=== PATIENT | male | born 1965 | race African-American/Black ===

== ENCOUNTER 2018-11-05 22:24 | Inpatient (IN) | payer OTHER, SELFPAY ==
[2018-11-05 23:31] LABS: #Basophils 0.1 thou/uL (0.0-0.2); #Eosinphils 0.2 thou/uL (0.0-0.7); #Monocytes 0.4 thou/uL (0.11-0.59); #Neutrophils 5.3 thou/uL (1.40-6.50); %Basophils 1.2 % (0.0-1.0); %Eosinophils 2.5 % (0.0-10.0); %Lymphocytes 24.8 % (21.0-51.0); %Monocytes 5.2 % (0.0-10.0); %Neutrophils 66.5 % (42.0-75.0); Mean Corpuscular HGB CONC 32.8 g/dL (32.0-36.0); Mean Corpuscular Volume 85.3 fL (78.0-98.0); Platelet Count 253 thou/uL (130-400); RBC Distribution Width 12.4 % (11.5-14.5); Red Blood Cell (RBC) Count 4.28 mill/uL (4.70-6.10); White Blood Cell (WBC) Count 7.9 thou/uL (4.8-10.8)
--- NOTE | 2018-11-05 23:39 | RAD ---
ONE VIEW CHEST: History: Altered mental status. Confusion. Comparison: 12-09-15 FINDINGS: Slight elongation of the aorta. Normal cardiac silhouette. Pulmonary vessels and hilum are normal. Co stophrenic angles are clear. No mass. No consolidation. No pneumothorax or osseous abnormalities. IMPRESSION: No acute cardiopulmonary process. POS: [facility]
--- NOTE | 2018-11-05 23:45 | CT ---
NONCONTRAST HEAD CT: Comparison: 03-08-09 History: Altered mental status. Confusion. Patient is not acting right. FINDINGS: NO parenchymal hemorrhage. No extraaxial hematoma. No midline shift. Basilar cisterns are patent. Age appropriate brain volume. There are white matter hypodensities due to chronic small vessel ischemic change. Remote lacunar infarcts involving the anterior aspect of the right lentiform nucleus and late ral aspect of the right caudate nucleus are noted. There is loss of cortical hurd white matter differentiation in the medial aspect of the left occipita l and parietal lobe. Remaining of the cerebrum does demonstrate preservation of cortical hurd white m atter differentiation. No evidence of hydrocephalus. Calvarium is intact. Adequate aeration of the si nuses and mastoid air cells. IMPRESSION: Acute infarct involving the left FLOWERS SALESPERSON distribution is suspected. Results of study discussed with Dr. Betina seo 11-05-18 at 11:33 p.m. POS: [facility]
[2018-11-05 23:46] LABS: Acetaminophen Less than 6.0 mcg/mL (10.0-30.0); Alcohol Less than 10 mg/dL (Less than 10); Salicylate Less than 8.0 mg/dL (15.0-30.0)
[2018-11-05 23:47] LABS: ALT (SGPT) 16 U/L (8-55); AST (SGOT) 15 U/L (5-34); Albumin 3.9 g/dL (3.5-5.0); Alkaline Phosphatase 108 U/L (40-150); Anion Gap 16 mmol/L (10-20); BUN (Urea Nitrogen) 22 mg/dL (8.4-25.7); Bilirubin, Total 0.4 mg/dL (0.2-1.2); CK (CPK) 251 U/L (30-200); Calc. Creatinine Clearance 0 mL/min (70-130); Calcium 9.4 mg/dL (7.8-10.44); Carbon Dioxide 26 mmol/L (22-29); Chloride 104 mmol/L (98-107); Estimated GFR-MDRD 66; Globulin 3.7 g/dL (2.4-3.5); Glucose 90 mg/dL (70-105); Potassium 3.5 mmol/L (3.5-5.1); Protein, Total 7.6 g/dL (6.0-8.3); Sodium 142 mmol/L (136-145)
[2018-11-06] MEDS ORDERED: cloNIDine 0.1 MG TAB ONE (01:03)
[2018-11-06] MEDS ORDERED: Senokot S 8.6-50 MG TAB PO PRN (02:08)
[2018-11-06] MEDS ORDERED: Acetaminophen 325 MG TAB PO PRN (02:08)
[2018-11-06] MEDS ORDERED: Labetalol HCl 100 MG/20 ML VIAL SLOW IVP PRN (02:08)
[2018-11-06] MEDS ORDERED: Bisacodyl 5 MG TAB PO PRN (02:08)
[2018-11-06] MEDS ORDERED: Ondansetron ODT 4 MG TAB PO PRN (02:08)
[2018-11-06] MEDS ORDERED: Calcium Carbonate 500 MG ChewTAB PO PRN (02:08)
[2018-11-06] MEDS ORDERED: Ondansetron PF 4 MG/2 ML Vial IVP PRN (02:08)
[2018-11-06 02:31] VITALS: BMI 39.8
[2018-11-06] MEDS: Sodium Chloride 0.9% 1,000 ML IV SCH ×2 (03:06→13:29)
[2018-11-06 05:25] LABS: #Eosinphils 0.4 thou/uL (0.0-0.7); #Lymphocytes 2.3 thou/uL (1.20-3.40); #Monocytes 0.5 thou/uL (0.11-0.59); #Neutrophils 3.8 thou/uL (1.40-6.50); %Basophils 0.6 % (0.0-1.0); %Eosinophils 5.7 % (0.0-10.0); %Lymphocytes 32.3 % (21.0-51.0); %Monocytes 6.9 % (0.0-10.0); %Neutrophils 54.5 % (42.0-75.0); Hemoglobin 10.7 g/dL (14.0-18.0); Mean Corpuscular HGB CONC 32.4 g/dL (32.0-36.0); Mean Corpuscular Hemoglobin 27.5 pg (27.0-31.0); Mean Corpuscular Volume 84.9 fL (78.0-98.0); Platelet Count 224 thou/uL (130-400); RBC Distribution Width 12.3 % (11.5-14.5); Red Blood Cell (RBC) Count 3.88 mill/uL (4.70-6.10)
[2018-11-06 05:56] LABS: Troponin I 0.043 ng/mL (< 0.028)
[2018-11-06 07:52] LABS: Anion Gap 14 mmol/L (10-20); BUN (Urea Nitrogen) 20 mg/dL (8.4-25.7); Calc. Creatinine Clearance 145 mL/min (70-130); Calcium 8.9 mg/dL (7.8-10.44); Carbon Dioxide 23 mmol/L (22-29); Chloride 107 mmol/L (98-107); Cholesterol 184 mg/dl (< 200 Desired); Estimated GFR-MDRD 87; Glucose 93 mg/dL (70-105); Sodium 141 mmol/L (136-145); Triglycerides 135 mg/dL (Less than 150)
[2018-11-06 07:53] LABS: Cardiac Risk 5.4 (Less than 4.5); HDL Cholesterol 34 mg/dL (>60 Neg Risk); LDL Cholesterol, Calculated 123 mg/dL
[2018-11-06] MEDS: Enoxaparin Sodium 30 MG/0.3 ML SYRINGE SC SCH (09:20)
[2018-11-06] MEDS: Famotidine/PF 20 mg/2ml Vial SLOW IVP SCH ×2 (09:21→20:57)
[2018-11-06] MEDS: Famotidine 20 MG TAB PO SCH ×2 (09:21→20:57)
[2018-11-06] MEDS: Aspirin 81 mg Enteric Coated Tablet PO SCH (09:21)
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
[2018-11-06] MEDS ORDERED: Potassium Chloride 20 MEQ TAB PO SCH (11:45)
[2018-11-06 12:34] LABS: Hemoglobin A1c 4.4 % (4.0-6.0)
--- NOTE | 2018-11-06 16:35 | ULT ---
CAROTID DUPLEX SONOGRAM: HISTORY: CVA. Vascular disease. FINDINGS: RIGHT: Minimal plaque. COLOR AND SPECTRAL DOPPLER EVALUATION: A peak systolic velocity of 38 cm per second and an ICA to CC A ratio of 0.3 suggests no hemodynamically significant stenosis within the extracranial right ICA. A ntegrade flow within the vertebral artery. LEFT: Mild plaque. COLOR AND SPECTRAL DOPPLER EVALUATION: A peak systolic velocity of 93 cm per second and an ICA to CC A ratio of 1.0 suggests no hemodynamically significant stenosis within the extracranial left ICA. El evated velocity in the external carotid artery of 210 cm per second suggests possible stenosis. Ante grade flow within the vertebral artery. IMPRESSION: Atherosclerosis. NO sonographic evidence of significant extracranial internal carotid artery stenosi s. POS: [facility]
--- NOTE | 2018-11-06 17:07 | MRI ---
MRI BRAIN NONCONTRAST: HISTORY: Altered mental status. CVA. COMPARISON: CT from 11/05/2018. FINDINGS: A large area of restricted diffusion involves the medial aspect of the left occipital lobe and region of abnormality on recent CT. There is a corresponding defect on the ADC mapping images. Multiple a dditional smaller foci of restricted diffusion are present throughout each cerebellar hemisphere, the medial aspect of the right occipital lobe, and the left basal ganglia. The areas of abnormality kelin w a mild increase in FLAIR and T2 signal. No significant mass effect. Scattered chronic small vesse l disease. The ventricles are within normal limits. IMPRESSION: As part of a recent showering embolic phenomenon appearance of the entirety of the posterior circulat ion, a large acute infarct involves the distribution of the left posterior cerebra artery. POS: [facility]
[2018-11-06] MEDS: Atorvastatin Calcium 40 MG TAB PO SCH (20:57)
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
[2018-11-07] MEDS: Sodium Chloride 0.9% 1,000 ML IV SCH ×3 (01:47→19:25)
[2018-11-07] MEDS: Aspirin 81 mg Enteric Coated Tablet PO SCH (09:05)
[2018-11-07] MEDS: Enoxaparin Sodium 30 MG/0.3 ML SYRINGE SC SCH (09:05)
[2018-11-07] MEDS: Famotidine 20 MG TAB PO SCH ×2 (09:05→20:49)
[2018-11-07] MEDS: Famotidine/PF 20 mg/2ml Vial SLOW IVP SCH ×2 (09:06→20:53)
--- NOTE | 2018-11-07 13:44 | PDOC.PN ---
- Subjective Encounter Start Date: 11/07/18 Encounter Start Time: 13:43 Patient seen and examined, sister at bedside, patient is AAO x 2, no major events overnight, all questions answered. - Objective Vital Signs & Weight: Vital Signs (12 hours) Temp Pulse Resp BP Pulse Ox 11/07/18 11:13 97.7 F 54 L 20 201/97 H 94 L 11/07/18 07:30 99.1 F 53 L 20 177/84 H 96 11/07/18 03:49 98.4 F 58 L 16 185/86 H 96 Weight Weight 285 lb 11.2 oz I&O: 11/06/18 11/07/18 11/08/18 06:59 06:59 06:59 Intake Total 2840 720 Output Total 275 Balance 2565 720 Result Diagrams: 11/06/18 04:21 11/06/18 04:21 Additional Labs: Accuchecks 11/07/18 05:46 POC Glucose 83 Phys Exam - Physical Examination Constitutional: NAD obese HEENT: PERRLA, moist MMs, sclera anicteric, TM's clear Neck: no nodes, no JVD, supple Respiratory: no wheezing, no rales, no rhonchi Cardiovascular: RRR, no significant murmur, no rub Gastrointestinal: soft, non-tender, no distention Musculoskeletal: pulses present, edema present (trace) Neurological: non-focal, normal sensation AAO x person and place only not time Dx/Plan (1) Stroke Code(s): I63.9 - CEREBRAL INFARCTION, UNSPECIFIED Status: Acute (2) Hypertension Code(s): I10 - ESSENTIAL (PRIMARY) HYPERTENSION Status: Acute - Plan * patient's sister states he has insurance, will await for them to bring the card, if he does patient would benefit from SNF and then eventually need assisted living or a fdc * no other changes in plan of care * case and plan d/ wpatient's sister at length, prognosis very poor over all, high risk for stroke to recurr, she understood and agreed with this plan.
[2018-11-07 15:08] LABS: Anion Gap 12 mmol/L (10-20); BUN (Urea Nitrogen) 14 mg/dL (8.4-25.7); Calc. Creatinine Clearance 158 mL/min (70-130); Calcium 9.1 mg/dL (7.8-10.44); Carbon Dioxide 26 mmol/L (22-29); Chloride 107 mmol/L (98-107); Estimated GFR-MDRD Greater than 90; Glucose 86 mg/dL (70-105); Potassium 3.6 mmol/L (3.5-5.1); Sodium 141 mmol/L (136-145)
[2018-11-07] MEDS: Atorvastatin Calcium 40 MG TAB PO SCH (20:49)
[2018-11-08] MEDS: Sodium Chloride 0.9% 1,000 ML IV SCH (02:16)
[2018-11-08] MEDS: Aspirin 81 mg Enteric Coated Tablet PO SCH (09:43)
[2018-11-08] MEDS: Famotidine 20 MG TAB PO SCH ×2 (09:43→21:38)
[2018-11-08] MEDS: Enoxaparin Sodium 30 MG/0.3 ML SYRINGE SC SCH (09:44)
[2018-11-08] MEDS: Famotidine/PF 20 mg/2ml Vial SLOW IVP SCH ×2 (10:46→21:38)
--- NOTE | 2018-11-08 10:48 | PDOC.PN ---
- Subjective Encounter Start Date: 11/08/18 Encounter Start Time: 10:44 Patient seen and examined, no new issues or complaints, sister at bedside, all questions answered. - Objective Vital Signs & Weight: Vital Signs (12 hours) Temp Pulse Resp BP Pulse Ox 11/08/18 07:51 99.1 F 57 L 20 175/98 H 98 11/08/18 04:00 98.8 F 56 L 16 183/89 H 92 L 11/08/18 00:25 98.2 F 61 16 185/86 H 92 L Weight Weight 285 lb 11.2 oz I&O: 11/07/18 11/08/18 11/09/18 06:59 06:59 06:59 Intake Total 2840 2160 Output Total 275 Balance 2565 2160 Result Diagrams: 11/06/18 04:21 11/07/18 14:43 Phys Exam - Physical Examination Constitutional: NAD HEENT: PERRLA, moist MMs, sclera anicteric, TM's clear Neck: no nodes, no JVD, supple Respiratory: no wheezing, no rales, no rhonchi Cardiovascular: RRR, no significant murmur, no rub Gastrointestinal: soft, non-tender, no distention Musculoskeletal: no edema, pulses present Neurological: non-focal, normal sensation Psychiatric: normal affect Deviation from normal: AAO to person and place only Dx/Plan (1) Stroke Code(s): I63.9 - CEREBRAL INFARCTION, UNSPECIFIED Status: Acute (2) Hypertension Code(s): I10 - ESSENTIAL (PRIMARY) HYPERTENSION Status: Acute - Plan * sister states she will be bringing paperwork to show that the patient has insurance * Patient remains confused and completely disoriented to time, the patient doesn 't have anyone at home who can take care of him, options will be discussed with family regarding assisted living or a SNF, CM/SW made aware and will be discussing with the patient's sister * for now will continue with aspirin + statin management, dietary changes advised * case and plan d/w patient's sister at length, she understands and agrees with this plan
[2018-11-08] MEDS ORDERED: Amlodipine 5 MG TAB PO SCH (14:15)
[2018-11-08] MEDS: hydrALAZINE 20 MG/ML VIAL SLOW IVP PRN (16:45)
[2018-11-08] MEDS: Atorvastatin Calcium 40 MG TAB PO SCH (21:38)
[2018-11-09] MEDS: hydrALAZINE 20 MG/ML VIAL SLOW IVP PRN ×3 (00:06→17:06)
[2018-11-09] MEDS: Famotidine 20 MG TAB PO SCH ×2 (09:09→21:03)
[2018-11-09] MEDS: Hydrochlorothiazide 25 MG TAB PO SCH (09:09)
[2018-11-09] MEDS: Amlodipine 10 MG TAB PO SCH (09:10)
[2018-11-09] MEDS: Aspirin 81 mg Enteric Coated Tablet PO SCH (09:10)
[2018-11-09] MEDS: Enoxaparin Sodium 30 MG/0.3 ML SYRINGE SC SCH (09:11)
[2018-11-09] MEDS: Famotidine/PF 20 mg/2ml Vial SLOW IVP SCH ×2 (09:12→21:04)
--- NOTE | 2018-11-09 14:45 | PDOC.PN ---
- Subjective Encounter Start Date: 11/09/18 Encounter Start Time: 14:48 Patient seen and examined, no new issues or complaints. - Objective Vital Signs & Weight: Vital Signs (12 hours) Temp Pulse Resp BP Pulse Ox 11/09/18 12:47 65 11/09/18 11:48 98.7 F 65 20 230/108 H 97 11/09/18 10:20 204/91 H 11/09/18 09:10 66 11/09/18 08:00 97 11/09/18 07:30 98.3 F 56 L 20 238/109 H 97 11/09/18 04:28 97.9 F 60 19 176/83 H 98 Weight Weight 285 lb 11.2 oz I&O: 11/08/18 11/09/18 11/10/18 06:59 06:59 06:59 Intake Total 2160 480 Balance 2160 480 Result Diagrams: 11/06/18 04:21 11/07/18 14:43 Phys Exam - Physical Examination Constitutional: NAD HEENT: PERRLA, moist MMs, sclera anicteric Neck: no nodes, no JVD, supple Respiratory: no wheezing, no rales, no rhonchi Cardiovascular: RRR, no significant murmur, no rub Gastrointestinal: soft, non-tender, no distention Musculoskeletal: pulses present Neurological: non-focal, normal sensation Psychiatric: normal affect Deviation from normal: AAO to person and place only Skin: no rash, normal turgor Dx/Plan (1) Stroke Code(s): I63.9 - CEREBRAL INFARCTION, UNSPECIFIED Status: Acute (2) Hypertension Code(s): I10 - ESSENTIAL (PRIMARY) HYPERTENSION Status: Acute - Plan * start HCTZ 25mg + norvasc 10mg + lisinopril 20mg for BP control * hydralazing PRN * cont current medications otherwise * if SBP predominently < 160mmHg in AM will DC patient AM * patient has no funding thus unable to do SNF or NH, CM d/w patient's sister already
[2018-11-09] MEDS: Atorvastatin Calcium 40 MG TAB PO SCH (21:03)
[2018-11-10] MEDS: hydrALAZINE 20 MG/ML VIAL SLOW IVP PRN ×2 (01:05→11:36)
[2018-11-10] MEDS ORDERED: cloNIDine 0.1 MG TAB PO PRN (04:43)
[2018-11-10] MEDS: Famotidine/PF 20 mg/2ml Vial SLOW IVP SCH (08:39)
[2018-11-10] MEDS: Amlodipine 10 MG TAB PO SCH (08:42)
[2018-11-10] MEDS: Hydrochlorothiazide 25 MG TAB PO SCH (08:43)
[2018-11-10] MEDS: Aspirin 81 mg Enteric Coated Tablet PO SCH (08:43)
[2018-11-10] MEDS: Lisinopril 20 MG TAB PO SCH (08:43)
[2018-11-10] MEDS: Famotidine 20 MG TAB PO SCH ×2 (08:43→20:37)
[2018-11-10] MEDS: Enoxaparin Sodium 30 MG/0.3 ML SYRINGE SC SCH (08:44)
--- NOTE | 2018-11-10 13:09 | PDOC.PN ---
- Subjective Encounter Start Date: 11/10/18 Encounter Start Time: 13:07 Patient seen and examined, remains confused, no family at bedside, all questions answered. - Objective Vital Signs & Weight: Vital Signs (12 hours) Temp Pulse Resp BP BP Pulse Ox 11/10/18 11:47 98.1 F 75 20 175/95 H 96 11/10/18 11:36 75 175/95 H 11/10/18 08:43 182/94 H 11/10/18 08:42 80 182/94 H 11/10/18 07:49 98.9 F 80 18 182/94 H 97 11/10/18 05:02 151/77 H 11/10/18 04:00 98.0 F 69 18 193/91 H 97 11/10/18 02:12 183/85 H Weight Weight 285 lb 11.2 oz I&O: 11/09/18 11/10/18 11/11/18 06:59 06:59 06:59 Intake Total 720 300 Balance 720 300 Result Diagrams: 11/06/18 04:21 11/07/18 14:43 Phys Exam - Physical Examination Constitutional: NAD HEENT: PERRLA, moist MMs, sclera anicteric Neck: no nodes, no JVD, supple Respiratory: no wheezing, no rales, no rhonchi Cardiovascular: RRR, no significant murmur, no rub Gastrointestinal: soft, non-tender, no distention Musculoskeletal: pulses present, edema present (trace) Neurological: non-focal, normal sensation AAO to person and place only not time Dx/Plan (1) Stroke Code(s): I63.9 - CEREBRAL INFARCTION, UNSPECIFIED Status: Acute (2) Hypertension Code(s): I10 - ESSENTIAL (PRIMARY) HYPERTENSION Status: Acute - Plan * pending insurance confirmation * DC to NH or SNF once insurance confirmed * start on HCTZ, noravasc and lisinopril yesterday, will monitor for now, SBP in the 160-170s, will increase lisinopril of SBP remains elevated, target SBP 120-140mmHh, will slowly drop BP * no other changes in plan of care * no family at bedside.
[2018-11-10] MEDS: Atorvastatin Calcium 40 MG TAB PO SCH (20:37)
[2018-11-11] MEDS: Hydrochlorothiazide 25 MG TAB PO SCH (09:14)
[2018-11-11] MEDS: Amlodipine 10 MG TAB PO SCH (09:14)
[2018-11-11] MEDS: Lisinopril 20 MG TAB PO SCH (09:15)
[2018-11-11] MEDS: Aspirin 81 mg Enteric Coated Tablet PO SCH (09:15)
[2018-11-11] MEDS: Famotidine 20 MG TAB PO SCH ×2 (09:15→20:40)
[2018-11-11] MEDS: Enoxaparin Sodium 30 MG/0.3 ML SYRINGE SC SCH (09:15)
--- NOTE | 2018-11-11 13:25 | PDOC.PN ---
- Subjective Encounter Start Date: 11/11/18 Encounter Start Time: 13:23 patient seen and examined, no new issues or complaints, all questions answered. No family at bedside. - Objective Vital Signs & Weight: Vital Signs (12 hours) Temp Pulse Resp BP Pulse Ox 11/11/18 11:44 98.8 F 72 18 156/83 H 96 11/11/18 07:53 99.0 F 97 18 160/96 H 97 11/11/18 04:00 99.1 F 86 18 140/84 96 Weight Weight 285 lb 11.2 oz I&O: 11/10/18 11/11/18 11/12/18 06:59 06:59 06:59 Intake Total 720 600 Balance 720 600 Result Diagrams: 11/06/18 04:21 11/07/18 14:43 Phys Exam - Physical Examination Constitutional: NAD HEENT: PERRLA, moist MMs, sclera anicteric Neck: no nodes, no JVD, supple Respiratory: no wheezing, no rales, no rhonchi Cardiovascular: RRR, no significant murmur, no rub Gastrointestinal: soft, non-tender, no distention Musculoskeletal: pulses present, edema present (trace) Dx/Plan (1) Stroke Code(s): I63.9 - CEREBRAL INFARCTION, UNSPECIFIED Status: Acute (2) Hypertension Code(s): I10 - ESSENTIAL (PRIMARY) HYPERTENSION Status: Acute - Plan * pending placement * case d/w patient's sister, states she's reached out to [facility] and is awaiting call back * DC plans once placement arranged * no changes in medical plan of care otherwise * case and plan d/w patient's sister, Samaria, via phone ([phone]), at length , she understood and agreed with this plan
[2018-11-11] MEDS: Atorvastatin Calcium 40 MG TAB PO SCH (20:40)
[2018-11-12] MEDS: Amlodipine 10 MG TAB PO SCH (09:02)
[2018-11-12] MEDS: Aspirin 81 mg Enteric Coated Tablet PO SCH (09:02)
[2018-11-12] MEDS: Lisinopril 20 MG TAB PO SCH (09:03)
[2018-11-12] MEDS: Enoxaparin Sodium 30 MG/0.3 ML SYRINGE SC SCH (09:03)
[2018-11-12] MEDS: Famotidine 20 MG TAB PO SCH ×2 (09:03→20:42)
[2018-11-12] MEDS: Hydrochlorothiazide 25 MG TAB PO SCH (09:03)
--- NOTE | 2018-11-12 10:52 | PDOC.PN ---
- Subjective Encounter Start Date: 11/12/18 Encounter Start Time: 10:50 Patient seen and examined - Objective Vital Signs & Weight: Vital Signs (12 hours) Temp Pulse Resp BP Pulse Ox 11/12/18 09:02 65 11/12/18 07:25 98.4 F 65 16 121/74 97 11/12/18 03:55 98.1 F 75 16 131/79 93 L 11/12/18 00:00 98.5 F 71 16 149/79 H 95 Weight Weight 285 lb 11.2 oz I&O: 11/11/18 11/12/18 11/13/18 06:59 06:59 06:59 Intake Total 600 1500 Balance 600 1500 Result Diagrams: 11/06/18 04:21 11/07/18 14:43 Phys Exam - Physical Examination Constitutional: NAD HEENT: PERRLA, moist MMs, sclera anicteric Neck: no nodes, no JVD, supple Respiratory: no wheezing, no rales, no rhonchi Cardiovascular: RRR, no significant murmur, no rub Gastrointestinal: soft, non-tender, no distention Musculoskeletal: pulses present, edema present (trace) Dx/Plan (1) Stroke Code(s): I63.9 - CEREBRAL INFARCTION, UNSPECIFIED Status: Acute (2) Hypertension Code(s): I10 - ESSENTIAL (PRIMARY) HYPERTENSION Status: Acute - Plan * cont asa + statin * cont BP management, much improved * pending discharge placement, sister is discussing with a NH to see if they will take him * DC plans once arrangements made, if none made then will DC home
[2018-11-12] MEDS: Atorvastatin Calcium 40 MG TAB PO SCH (20:42)
[2018-11-13] MEDS: Enoxaparin Sodium 30 MG/0.3 ML SYRINGE SC SCH (08:37)
[2018-11-13] MEDS: Amlodipine 10 MG TAB PO SCH (08:37)
[2018-11-13] MEDS: Aspirin 81 mg Enteric Coated Tablet PO SCH (08:37)
[2018-11-13] MEDS: Famotidine 20 MG TAB PO SCH ×2 (08:37→20:13)
[2018-11-13] MEDS: Hydrochlorothiazide 25 MG TAB PO SCH (08:37)
[2018-11-13] MEDS: Lisinopril 20 MG TAB PO SCH (08:37)
--- NOTE | 2018-11-13 12:06 | PDOC.PN ---
- Subjective Encounter Start Date: 11/13/18 Encounter Start Time: 07:00 Pt seen for followup re: ischemic CVA. Says he feels well. - Objective Vital Signs & Weight: Vital Signs (12 hours) Temp Pulse Resp BP Pulse Ox 11/13/18 11:43 97.8 F 64 18 145/98 H 96 11/13/18 08:37 62 11/13/18 07:34 97.9 F 62 18 144/66 H 97 11/13/18 03:43 98.5 F 67 16 123/64 93 L Weight Weight 266 lb 6.4 oz I&O: 11/12/18 11/13/18 11/14/18 06:59 06:59 06:59 Intake Total 1500 710 Balance 1500 710 Result Diagrams: 11/06/18 04:21 11/07/18 14:43 Phys Exam - Physical Examination Obese HEENT: moist MMs Neck: supple Respiratory: clear to auscultation bilateral Cardiovascular: RRR Gastrointestinal: soft Neurological: moves all 4 limbs Psychiatric: normal affect Deviation from normal: Oriented to person only Dx/Plan (1) Ischemic cerebrovascular accident (CVA) Code(s): I63.9 - CEREBRAL INFARCTION, UNSPECIFIED Status: Acute Comment: continue aspirin and statin (2) Hypertension Code(s): I10 - ESSENTIAL (PRIMARY) HYPERTENSION Status: Chronic Comment: continue amlodipine (3) Dyslipidemia Code(s): E78.5 - HYPERLIPIDEMIA, UNSPECIFIED Status: Chronic Comment: continue statin - Plan * . Review of Systems - Review of Systems Cardiovascular: negative: chest pain, palpitations, orthopnea, paroxysmal nocturnal dyspnea, edema, light headedness Gastrointestinal: negative: Nausea, Vomiting, Abdominal Pain, Diarrhea, Constipation, Melena, Hematochezia - Medications/Allergies Allergies/Adverse Reactions: Allergies Allergy/AdvReac Type Severity Reaction Status Date / Time No Known Allergies Allergy Verified 11/06/18 03:41 Medications: Current Medications Acetaminophen (Tylenol) 650 mg PO Q4H PRN PRN Reason: Headache/Fever/Mild Pain (1-3) Amlodipine Besylate (Norvasc) 10 mg PO DAILY [facility] Last Admin: 11/13/18 08:37 Dose: 10 mg Aspirin (Ecotrin) 81 mg PO DAILY [facility] Last Admin: 11/13/18 08:37 Dose: 81 mg Atorvastatin Calcium (Lipitor) 80 mg PO HS [facility] Last Admin: 11/12/18 20:42 Dose: 80 mg Bisacodyl (Dulcolax) 10 mg PO DAILYPRN PRN PRN Reason: Constipation Calcium Carbonate (Tums) 1,000 mg PO Q4H PRN PRN Reason: Heartburn or Indigestion Clonidine (Catapres) 0.1 mg PO Q4H PRN PRN Reason: SBP>170 Enoxaparin Sodium (Lovenox) 30 mg SC 0900 [facility] Last Admin: 11/13/18 08:37 Dose: 30 mg Famotidine (Pepcid) 20 mg PO BID [facility] Last Admin: 11/13/18 08:37 Dose: 20 mg Hydralazine HCl (Apresoline) 10 mg SLOW IVP Q4H PRN PRN Reason: FOR SBP > 170mmHg Last Admin: 11/10/18 11:36 Dose: 10 mg Hydrochlorothiazide (Hydrochlorothiazide) 25 mg PO DAILY [facility] Last Admin: 11/13/18 08:37 Dose: 25 mg Lisinopril (Zestril) 20 mg PO DAILY [facility] Last Admin: 11/13/18 08:37 Dose: 20 mg Ondansetron HCl (Zofran Odt) 4 mg PO Q6H PRN PRN Reason: Nausea/Vomiting Ondansetron HCl (Zofran) 4 mg IVP Q6H PRN PRN Reason: Nausea/Vomiting Senna/Docusate Sodium (Senokot S) 2 tab PO BIDPRN PRN PRN Reason: Constipation Sodium Chloride (Flush - Normal Saline) 10 ml IVF Q12HR [facility] Last Admin: 11/13/18 08:37 Dose: 10 ml Sodium Chloride (Flush - Normal Saline) 10 ml IVF PRN PRN PRN Reason: Saline Flush
[2018-11-13] MEDS: Atorvastatin Calcium 40 MG TAB PO SCH (20:13)
[2018-11-14] MEDS: Famotidine 20 MG TAB PO SCH ×2 (08:12→21:24)
[2018-11-14] MEDS: Enoxaparin Sodium 30 MG/0.3 ML SYRINGE SC SCH (08:12)
[2018-11-14] MEDS: Amlodipine 10 MG TAB PO SCH (08:12)
[2018-11-14] MEDS: Aspirin 81 mg Enteric Coated Tablet PO SCH (08:12)
[2018-11-14] MEDS: Lisinopril 20 MG TAB PO SCH (08:12)
[2018-11-14] MEDS: Hydrochlorothiazide 25 MG TAB PO SCH (08:13)
--- NOTE | 2018-11-14 11:36 | PDOC.PN ---
- Subjective Encounter Start Date: 11/14/18 Encounter Start Time: 07:00 Pt seen for followup re: ischemic CVA. Denies any complaints. - Objective MAR Reviewed: Yes Vital Signs & Weight: Vital Signs (12 hours) Temp Pulse Resp BP Pulse Ox 11/14/18 08:12 62 11/14/18 07:44 97.9 F 62 20 140/84 97 11/14/18 04:00 98.4 F 63 18 114/64 97 11/14/18 00:00 98.4 F 71 18 122/76 99 Weight Weight 266 lb 6.4 oz I&O: 11/13/18 11/14/18 11/15/18 06:59 06:59 06:59 Intake Total 710 1500 Balance 710 1500 Result Diagrams: 11/06/18 04:21 11/07/18 14:43 EKG Reviewed by me: Yes (Tele: NSR) Phys Exam - Physical Examination Constitutional: NAD HEENT: moist MMs Neck: supple Respiratory: clear to auscultation bilateral Cardiovascular: RRR Gastrointestinal: soft Neurological: moves all 4 limbs Psychiatric: normal affect Dx/Plan (1) Ischemic cerebrovascular accident (CVA) Code(s): I63.9 - CEREBRAL INFARCTION, UNSPECIFIED Status: Acute Comment: on aspirin and statin (2) Hypertension Code(s): I10 - ESSENTIAL (PRIMARY) HYPERTENSION Status: Chronic Comment: controlled (3) Dyslipidemia Code(s): E78.5 - HYPERLIPIDEMIA, UNSPECIFIED Status: Chronic Comment: on statin - Plan * . Review of Systems - Review of Systems Constitutional: negative: fever, chills, sweats, weakness, malaise Cardiovascular: negative: chest pain, palpitations, orthopnea, paroxysmal nocturnal dyspnea, edema, light headedness - Medications/Allergies Allergies/Adverse Reactions: Allergies Allergy/AdvReac Type Severity Reaction Status Date / Time No Known Allergies Allergy Verified 11/06/18 03:41 Medications: Current Medications Acetaminophen (Tylenol) 650 mg PO Q4H PRN PRN Reason: Headache/Fever/Mild Pain (1-3) Amlodipine Besylate (Norvasc) 10 mg PO DAILY [facility] Last Admin: 11/14/18 08:12 Dose: 10 mg Aspirin (Ecotrin) 81 mg PO DAILY [facility] Last Admin: 11/14/18 08:12 Dose: 81 mg Atorvastatin Calcium (Lipitor) 80 mg PO HS [facility] Last Admin: 11/13/18 20:13 Dose: 80 mg Bisacodyl (Dulcolax) 10 mg PO DAILYPRN PRN PRN Reason: Constipation Calcium Carbonate (Tums) 1,000 mg PO Q4H PRN PRN Reason: Heartburn or Indigestion Clonidine (Catapres) 0.1 mg PO Q4H PRN PRN Reason: SBP>170 Enoxaparin Sodium (Lovenox) 30 mg SC 0900 [facility] Last Admin: 11/14/18 08:12 Dose: 30 mg Famotidine (Pepcid) 20 mg PO BID [facility] Last Admin: 11/14/18 08:12 Dose: 20 mg Hydralazine HCl (Apresoline) 10 mg SLOW IVP Q4H PRN PRN Reason: FOR SBP > 170mmHg Last Admin: 11/10/18 11:36 Dose: 10 mg Hydrochlorothiazide (Hydrochlorothiazide) 25 mg PO DAILY [facility] Last Admin: 11/14/18 08:13 Dose: 25 mg Lisinopril (Zestril) 20 mg PO DAILY [facility] Last Admin: 11/14/18 08:12 Dose: 20 mg Ondansetron HCl (Zofran Odt) 4 mg PO Q6H PRN PRN Reason: Nausea/Vomiting Ondansetron HCl (Zofran) 4 mg IVP Q6H PRN PRN Reason: Nausea/Vomiting Senna/Docusate Sodium (Senokot S) 2 tab PO BIDPRN PRN PRN Reason: Constipation Sodium Chloride (Flush - Normal Saline) 10 ml IVF Q12HR [facility] Last Admin: 11/14/18 08:13 Dose: Not Given Sodium Chloride (Flush - Normal Saline) 10 ml IVF PRN PRN PRN Reason: Saline Flush
[2018-11-14] MEDS: Atorvastatin Calcium 40 MG TAB PO SCH (21:24)
[2018-11-15] MEDS: Enoxaparin Sodium 30 MG/0.3 ML SYRINGE SC SCH (09:11)
[2018-11-15] MEDS: Hydrochlorothiazide 25 MG TAB PO SCH (09:12)
[2018-11-15] MEDS: Famotidine 20 MG TAB PO SCH (09:12)
[2018-11-15] MEDS: Lisinopril 20 MG TAB PO SCH (09:12)
[2018-11-15] MEDS: Aspirin 81 mg Enteric Coated Tablet PO SCH (09:12)
[2018-11-15] MEDS: Amlodipine 10 MG TAB PO SCH (09:12)
[2018-11-15 11:18] VITALS: BP 133/89; TEMP 97.8
[2018-11-15] MEDS ORDERED: Atorvastatin Calcium 40 MG TAB PO SCH (21:00)
--- NOTE | 2018-11-15 22:14 | DIS ---
DATE OF ADMISSION: 11/06/2018 DATE OF DISCHARGE: 11/15/2018 PRIMARY CARE PROVIDER: None. DISCHARGE DIAGNOSES: 1. Ischemic stroke. 2. 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 3. Dyslipidemia. 4. Hypertension. 5. Acute metabolic encephalopathy. CONDITION OF PATIENT ON THE DAY OF DISCHARGE: Stable. I assessed Mr. Wade on the day of discharge. He denies any chest pain or shortness of breath. Vital signs are stable. S1 and S2 are heard, regular. Lungs are clear to auscultation bilaterally. CONSULTATIONS DURING THIS HOSPITALIZATION: Neurology, Dr. Vazquez. DISCHARGE MEDICATIONS: 1. Amlodipine 10 mg daily. 2. Aspirin 81 mg daily. 3. Lipitor 40 mg at bedtime. 4. Hydrochlorothiazide 25 mg daily. 5. Lisinopril 20 mg daily. HOSPITAL COURSE: Mr. Wade is a pleasant 53-year-old gentleman, who was admitted to [facility] on November 06, 2018, for acute confusional state. Please refer to Dr. Harvey's history and physical note dated November 06, 2018, for further details. He was seen by Neurology Service. MRI of the brain showed recent showering embolic phenomenon of the entirety of posterior circulation. He had a large acute infarct involving the distribution of the left posterior cerebral artery. Carotid Dopplers showed atherosclerosis, but no sonographic evidence of significant extracranial internal carotid artery stenosis. He also had 2D echocardiogram, which showed left ventricular ejection fraction of 60% to 65%, grade 2/3 diastolic dysfunction, moderately dilated left atrium, mitral annular calcification, mild mitral regurgitation and mild tricuspid regurgitation. He was seen by [facility]. He was being discharged to swing bed at [place] for further management. During this hospitalization, he had triglycerides 135, cholesterol 184, LDL cholesterol 123, and HDL cholesterol 34. TSH was slightly decreased at 0.3189, but free T4 was normal at 0.98. Many thanks for allowing me to participate in your patient's care. Please feel free to contact me with any questions or concerns. DISCHARGE DESTINATION: [facility]. TIME SPENT: Total amount of time spent coordinating this discharge: 31 minutes. Job ID: [id number]
== END 2018-11-15 13:57 | disposition swing bed (61) | DRG 64 ==
LOC: ERS 22:24 → 2SE 11-06 00:45
PROVIDERS: ADMIT Internal Medicine; ATTEND Internal Medicine
DX: I63.432 Cerebral infarction due to embolism of left posterior cerebral artery (principal); G93.41 Metabolic encephalopathy; R29.710 NIHSS score 10; I10 Essential (primary) hypertension; R40.2412 Glasgow coma scale score 13-15, at arrival to emergency department; E66.9 Obesity, unspecified; E78.5 Hyperlipidemia, unspecified; F17.210 Nicotine dependence, cigarettes, uncomplicated; Z68.37 Body mass index [BMI] 37.0-37.9, adult
CPT/HCPCS: 36415; 36416; 70450; 70551; 71045; 80048; 80053; 80061; 80307; 82550; 83036; 84439; 84443; 84484; 85025; 90471; 90732; 93005; 93306; 93880; 94760; 99406; G0009; G8978-GP-CJ; G8979-GP-CJ; G8980-GP-CJ; G8987-GO-CI; G8988-GO-CI; G8989-GO-CI; G8996-GN-CH; G8997-GN-CH; G8998-GN-CH; J0360; J1650; J3490; S0028

== ENCOUNTER 2022-05-07 10:46 | Observation (INO) | payer MEDICARE, SELFPAY ==
[2022-05-07 11:10] LABS: #Basophils 0.1 thou/uL (0.0-0.2); #Eosinphils 0.3 thou/uL (0.0-0.7); #Lymphocytes 1.9 thou/uL (1.20-3.40); #Monocytes 0.4 thou/uL (0.11-0.59); #Neutrophils 2.7 thou/uL (1.40-6.50); %Basophils 1.2 % (0.0-1.0); %Lymphocytes 35.5 % (21.0-51.0); %Monocytes 7.2 % (0.0-10.0); %Neutrophils 51.1 % (42.0-75.0); Mean Corpuscular HGB CONC 31.4 g/dL (32.0-36.0); Mean Corpuscular Hemoglobin 28.3 pg (27.0-31.0); Mean Corpuscular Volume 90.3 fL (78.0-98.0); Mean Platelet Volume 7.9 fL (7.4-10.4); Platelet Count 255 thou/uL (130-400); Red Blood Cell (RBC) Count 4.24 mill/uL (4.70-6.10); White Blood Cell (WBC) Count 5.4 thou/uL (4.8-10.8)
[2022-05-07 11:20] LABS: PTT 31.5 sec (22.9-36.1); Prothrombin Time 13.1 sec (12.0-14.7)
[2022-05-07 11:24] LABS: ALT (SGPT) 19 U/L (8-55); AST (SGOT) 17 U/L (5-34); Albumin 4.1 g/dL (3.5-5.0); Alkaline Phosphatase 97 U/L (40-110); Anion Gap 15 mmol/L (10-20); BUN (Urea Nitrogen) 16 mg/dL (8.4-25.7); Bilirubin, Total 0.8 mg/dL (0.2-1.2); Calc. Creatinine Clearance 0 mL/min (70-130); Calcium 9.3 mg/dL (7.8-10.44); Carbon Dioxide 24 mmol/L (22-29); Chloride 103 mmol/L (98-107); Estimated GFR 61; Globulin 3.6 g/dL (2.4-3.5); Glucose 95 mg/dL (70-105); Potassium 3.5 mmol/L (3.5-5.1); Protein, Total 7.7 g/dL (6.0-8.3); Sodium 138 mmol/L (136-145)
[2022-05-07 11:37] LABS: Acetaminophen Less than 10.0 mcg/mL (10.0-30.0); Alcohol Less than 10 mg/dL (Less than 10); Salicylate Less than 8.0 mg/dL (15.0-30.0)
[2022-05-07 12:38] LABS: Bilirubin Negative (Negative); Blood, Urine Negative (Negative); Clarity Clear (Clear); Glucose, Urine (Dipstick) 150 mg/dL (Negative); Ketone, Urine Negative (Negative); Leukocyte 250 Leu/uL (Negative); Nitrite Negative (Negative); Protein, Urine (Dipstick) 30 mg/dL (Neg-Trace); RBC/HPF 0-3 HPF (0-3); Specific Gravity, Urine 1.026 (1.002-1.036); Squamous Epithelial 0-3 HPF (0-3); pH, Urine 5.5 (5.0-9.0)
[2022-05-07 12:43] LABS: Bacteria/HPF Rare-Few HPF (None Seen)
[2022-05-07 12:46] LABS: Amphetamine Not Detected (NotDetected); Barbiturates Screen Not Detected (NotDetected); Benzodiazepine Screen Not Detected (NotDetected); Cocaine Metabolite Screen Not Detected (NotDetected); Methadone Not Detected (NotDetected); Methamphetamine Not Detected (NotDetected); Opiate Screen Not Detected (NotDetected); Oxycodone Screen Not Detected (NotDetected); Phencyclidine (PCP) Not Detected (NotDetected); THC/Cannabinoid Screen Not Detected (NotDetected); Tricyclic Screen Not Detected (NotDetected)
[2022-05-07] MEDS ORDERED: cefTRIAXone\\ROCEPHIN 1 GM VIAL ONE (13:40)
[2022-05-07] MEDS ORDERED: Ondansetron PF 4 MG/2 ML Vial IVP PRN (15:03)
[2022-05-07] MEDS ORDERED: Senokot S 8.6-50 MG TAB PO PRN (15:03)
[2022-05-07] MEDS ORDERED: Acetaminophen 325 MG TAB PO PRN (15:03)
[2022-05-07] MEDS ORDERED: Nicotine 14 MG PATCH TD PRN (15:03)
[2022-05-07] MEDS ORDERED: Ondansetron ODT 4 MG TAB PO PRN (15:03)
[2022-05-07] MEDS ORDERED: cefTRIAXone\\ROCEPHIN 1 GM in Sodium Chloride 0.9% 100 ML IVPB SCH (16:00)
[2022-05-07] MEDS: Sodium Chloride 0.9% 1,000 ML IV SCH (18:05)
[2022-05-07 18:24] VITALS: BMI 37.1
[2022-05-07] MEDS ORDERED: hydrALAZINE 20 MG/ML VIAL SLOW IVP PRN (21:20)
[2022-05-07] MEDS ORDERED: Terbinafine 250 MG TAB PO SCH (21:30)
[2022-05-07] MEDS: Atorvastatin Calcium 40 MG TAB PO SCH (21:54)
[2022-05-07 22:39] LABS: SARS-CoV-2 NAA Rapid Test Not Detected (NotDetected)
[2022-05-08] MEDS: Sodium Chloride 0.9% 1,000 ML IV SCH (05:07)
[2022-05-08 05:55] LABS: #Basophils 0.1 thou/uL (0.0-0.2); #Eosinphils 0.4 thou/uL (0.0-0.7); #Lymphocytes 1.9 thou/uL (1.20-3.40); #Monocytes 0.5 thou/uL (0.11-0.59); %Eosinophils 7.3 % (0.0-10.0); %Lymphocytes 32.8 % (21.0-51.0); %Monocytes 8.1 % (0.0-10.0); %Neutrophils 50.8 % (42.0-75.0); Hemoglobin 10.5 g/dL (14.0-18.0); Mean Corpuscular HGB CONC 31.3 g/dL (32.0-36.0); Mean Corpuscular Hemoglobin 28.4 pg (27.0-31.0); Mean Corpuscular Volume 90.7 fL (78.0-98.0); Mean Platelet Volume 8.2 fL (7.4-10.4); Platelet Count 216 thou/uL (130-400); Red Blood Cell (RBC) Count 3.69 mill/uL (4.70-6.10); White Blood Cell (WBC) Count 5.8 thou/uL (4.8-10.8)
[2022-05-08 06:12] LABS: Anion Gap 13 mmol/L (10-20); BUN (Urea Nitrogen) 17 mg/dL (8.4-25.7); Calc. Creatinine Clearance 115 mL/min (70-130); Calcium 8.7 mg/dL (7.8-10.44); Carbon Dioxide 23 mmol/L (22-29); Chloride 107 mmol/L (98-107); Estimated GFR 72; Glucose 89 mg/dL (70-105); Potassium 3.5 mmol/L (3.5-5.1); Sodium 139 mmol/L (136-145)
[2022-05-08] MEDS ORDERED: Gadobenate Dimeglumine 529 MG/1 ML (20ML VIAL) ONE (08:00)
[2022-05-08] MEDS ORDERED: VIT C PO SCH (09:00)
[2022-05-08] MEDS ORDERED: [UNRECOGNIZED DRUG - OTHER] PO SCH (09:00)
[2022-05-08] MEDS ORDERED: IRON PO SCH (09:00)
[2022-05-08] MEDS: cefTRIAXone\\ROCEPHIN 1 GM in Sodium Chloride 0.9% 100 ML IVPB SCH (09:43)
[2022-05-08] MEDS: Lisinopril 20 MG TAB PO SCH (09:44)
[2022-05-08] MEDS: Aspirin 81 mg Enteric Coated Tablet PO SCH (09:44)
[2022-05-08] MEDS: cloNIDine 0.1 MG TAB PO SCH ×2 (09:44→20:06)
[2022-05-08] MEDS: Amlodipine 10 MG TAB PO SCH (09:44)
[2022-05-08] MEDS: Atorvastatin Calcium 40 MG TAB PO SCH (20:05)
[2022-05-09] MEDS: Aspirin 81 mg Enteric Coated Tablet PO SCH (09:15)
[2022-05-09] MEDS: cloNIDine 0.1 MG TAB PO SCH ×2 (09:19→21:04)
[2022-05-09] MEDS: Amlodipine 10 MG TAB PO SCH ×2 (09:19→09:27)
[2022-05-09] MEDS: cefTRIAXone\\ROCEPHIN 1 GM in Sodium Chloride 0.9% 100 ML IVPB SCH (09:20)
[2022-05-09] MEDS: Lisinopril 20 MG TAB PO SCH ×2 (09:20→09:27)
[2022-05-09] MEDS ORDERED: Clopidogrel Bisulfate 75 MG TAB PO SCH (09:30)
[2022-05-09] MEDS: Atorvastatin Calcium 40 MG TAB PO SCH (21:04)
[2022-05-10] MEDS ORDERED: Clopidogrel Bisulfate 75 MG TAB PO SCH (09:00)
[2022-05-10] MEDS: Lisinopril 20 MG TAB PO SCH (09:27)
[2022-05-10] MEDS: Aspirin 81 mg Enteric Coated Tablet PO SCH (09:27)
[2022-05-10] MEDS: Amlodipine 10 MG TAB PO SCH (09:30)
[2022-05-10] MEDS: cloNIDine 0.1 MG TAB PO SCH (09:31)
[2022-05-10 11:54] VITALS: BP 161/85; TEMP 97.7
== END 2022-05-10 12:40 | disposition home or self-care (01) ==
LOC: ERS 10:46 → SURG B 13:37
PROVIDERS: ADMIT Internal Medicine; ATTEND Internal Medicine
DX: G93.40 Encephalopathy, unspecified (principal); I13.10 Hypertensive heart and chronic kidney disease without heart failure, with stage 1 through stage 4 chronic kidney disease, or unspecified chronic kidney disease; N18.30 Chronic kidney disease, stage 3 unspecified; D63.1 Anemia in chronic kidney disease; N17.9 Acute kidney failure, unspecified; E78.5 Hyperlipidemia, unspecified; I69.354 Hemiplegia and hemiparesis following cerebral infarction affecting left non-dominant side; F17.210 Nicotine dependence, cigarettes, uncomplicated; I08.1 Rheumatic disorders of both mitral and tricuspid valves; Z79.82 Long term (current) use of aspirin; Z79.899 Other long term (current) drug therapy; Z20.822 Contact with and (suspected) exposure to COVID-19
CPT/HCPCS: 70450; 70553; 71045; 80048; 80053; 80306; 80307; 82962; 83605; 84484; 85025 ×2; 85610; 85730; 87040; 87086; 93005; 93306; 94760; 95819; 95957; 96365; 97116; 99285; C2627; U0002; 36415; 36416; 81003; 81015; 96361; 96376; A9577; G0378; J0360; J0696; J3490; J7050

== ENCOUNTER 2023-08-22 09:26 | Inpatient (IN) | payer MEDICARE ==
[2023-08-22 10:33] LABS: #Monocytes 0.9 thou/uL (0.11-0.59); #Neutrophils 7.8 thou/uL (1.40-6.50); %Basophils 0.3 % (0.0-1.0); %Lymphocytes 15.8 % (21.0-51.0); %Monocytes 8.4 % (0.0-10.0); %Neutrophils 75.2 % (42.0-75.0); Hematocrit 37.3 % (42.0-52.0); Hemoglobin 12.2 g/dL (14.0-18.0); Mean Corpuscular HGB CONC 32.7 g/dL (32.0-36.0); Mean Corpuscular Hemoglobin 27.2 pg (27.0-31.0); Mean Corpuscular Volume 83.1 fl (78.0-98.0); Mean Platelet Volume 10.5 fL (7.4-10.4); Platelet Count 330 10x3/uL (130-400); RBC Distribution Width 12.2 % (11.5-14.5); Red Blood Cell (RBC) Count 4.49 mill/uL (4.70-6.10); White Blood Cell (WBC) Count 10.4 10x3/uL (4.8-10.8)
[2023-08-22 10:41] LABS: INR-International Normal Ratio 1.1; PTT 34.7 sec (22.9-36.1); Prothrombin Time 14.9 sec (12.0-14.7)
[2023-08-22 10:46] LABS: Troponin I Less than 0.010 ng/mL (< 0.028)
[2023-08-22 11:13] LABS: ALT (SGPT) 11 U/L (8-55); AST (SGOT) 15 U/L (5-34); Albumin 4.8 g/dL (3.5-5.0); Alkaline Phosphatase 117 U/L (40-110); Anion Gap 18 mmol/L (10-20); BUN (Urea Nitrogen) 16 mg/dL (8.4-25.7); Bilirubin, Total 1.3 mg/dL (0.2-1.2); Calc. Creatinine Clearance 0 mL/min (70-130); Calcium 10.3 mg/dL (7.8-10.44); Carbon Dioxide 22 mmol/L (22-29); Chloride 100 mmol/L (98-107); Estimated GFR 73; Globulin 4.1 g/dL (2.4-3.5); Glucose 109 mg/dL (70-105); Potassium 3.2 mmol/L (3.5-5.1); Protein, Total 8.9 g/dL (6.0-8.3); Sodium 137 mmol/L (136-145)
[2023-08-22] MEDS ORDERED: hydrALAZINE 20 MG/ML VIAL SLOW IVP PRN (12:25)
[2023-08-22] MEDS ORDERED: Acetaminophen 325 MG TAB PO PRN (12:28)
[2023-08-22] MEDS ORDERED: Senokot S 8.6-50 MG TAB PO PRN (12:28)
[2023-08-22] MEDS ORDERED: Ondansetron PF 4 MG/2 ML Vial IVP PRN (12:28)
[2023-08-22] MEDS ORDERED: Ondansetron ODT 4 MG TAB PO PRN (12:28)
[2023-08-22 12:38] LABS: Magnesium 1.7 mg/dL (1.6-2.6)
[2023-08-22] MEDS ORDERED: Potassium Chloride 20 MEQ TAB PO SCH (13:00)
[2023-08-22] MEDS ORDERED: Aspirin 81 mg Enteric Coated Tablet PO SCH (13:00)
[2023-08-22] MEDS ORDERED: Clopidogrel Bisulfate 75 MG TAB PO SCH (13:00)
[2023-08-22] MEDS ORDERED: cloNIDine 0.1 MG TAB PO SCH (13:30)
[2023-08-22] MEDS ORDERED: Aspirin Chewable 81 MG TAB ONE (15:02)
[2023-08-22 16:15] VITALS: BMI 36.0
[2023-08-22] MEDS ORDERED: Magnesium 2 GM/50 ML(in water) 2 GM in Premix 1 BAG IVPB SCH (16:15)
[2023-08-22] MEDS: Heparin 5,000 UNITS/ML VIAL SC SCH (20:20)
[2023-08-22] MEDS: cloNIDine 0.1 MG TAB PO SCH (20:20)
[2023-08-22] MEDS: Famotidine 20 MG TAB PO SCH (20:21)
[2023-08-22] MEDS: Amlodipine 10 MG TAB PO SCH (20:21)
[2023-08-22] MEDS: Atorvastatin Calcium 40 MG TAB PO SCH (20:21)
[2023-08-22] MEDS: Tamsulosin HCl 0.4 MG CAP PO SCH (20:21)
[2023-08-22] MEDS ORDERED: Amlodipine 10 MG TAB PO SCH (21:00)
[2023-08-22] MEDS ORDERED: Atorvastatin Calcium 40 MG TAB PO SCH (21:00)
[2023-08-23 04:54] LABS: #Monocytes 0.8 thou/uL (0.11-0.59); #Neutrophils 6.6 thou/uL (1.40-6.50); %Basophils 0.5 % (0.0-1.0); %Eosinophils 0.5 % (0.0-10.0); %Lymphocytes 13.3 % (21.0-51.0); %Monocytes 9.4 % (0.0-10.0); Hematocrit 33.1 % (42.0-52.0); Hemoglobin 10.7 g/dL (14.0-18.0); Mean Corpuscular HGB CONC 32.3 g/dL (32.0-36.0); Mean Corpuscular Hemoglobin 27.5 pg (27.0-31.0); Mean Corpuscular Volume 85.1 fl (78.0-98.0); Mean Platelet Volume 10.3 fL (7.4-10.4); Platelet Count 293 10x3/uL (130-400); RBC Distribution Width 12.6 % (11.5-14.5); Red Blood Cell (RBC) Count 3.89 mill/uL (4.70-6.10); White Blood Cell (WBC) Count 8.7 10x3/uL (4.8-10.8)
[2023-08-23 05:03] LABS: Hemoglobin A1c 4.3 % (4.0-6.0)
[2023-08-23 05:22] LABS: ALT (SGPT) 12 U/L (8-55); AST (SGOT) 16 U/L (5-34); Albumin 4.1 g/dL (3.5-5.0); Alkaline Phosphatase 98 U/L (40-110); Anion Gap 15 mmol/L (10-20); BUN (Urea Nitrogen) 14 mg/dL (8.4-25.7); Calc. Creatinine Clearance 120 mL/min (70-130); Calcium 9.5 mg/dL (7.8-10.44); Carbon Dioxide 22 mmol/L (22-29); Cardiac Risk 2.5 (Less than 4.5); Chloride 102 mmol/L (98-107); Cholesterol 128 mg/dl (< 200 Desired); Estimated GFR 76; Globulin 3.5 g/dL (2.4-3.5); Glucose 109 mg/dL (70-105); HDL Cholesterol 52 mg/dL (>60 Neg Risk); LDL Cholesterol, Calculated 65 mg/dL; Potassium 3.5 mmol/L (3.5-5.1); Protein, Total 7.6 g/dL (6.0-8.3); Sodium 135 mmol/L (136-145); Triglycerides 55 mg/dL (Less than 150)
[2023-08-23] MEDS: cloNIDine 0.1 MG TAB PO SCH ×2 (08:13→21:18)
[2023-08-23] MEDS: Aspirin 81 mg Enteric Coated Tablet PO SCH (08:13)
[2023-08-23] MEDS: Clopidogrel Bisulfate 75 MG TAB PO SCH (08:14)
[2023-08-23] MEDS: Famotidine 20 MG TAB PO SCH ×2 (08:14→21:19)
[2023-08-23] MEDS: Lisinopril 20 MG TAB PO SCH (08:15)
[2023-08-23] MEDS: Heparin 5,000 UNITS/ML VIAL SC SCH ×2 (08:17→21:18)
[2023-08-23] MEDS ORDERED: Clopidogrel Bisulfate 75 MG TAB PO SCH (09:00)
[2023-08-23] MEDS ORDERED: Aspirin 81 mg Enteric Coated Tablet PO SCH (09:00)
[2023-08-23] MEDS: traMADol HCl 50 MG TAB PO PRN ×2 (10:40→21:18)
[2023-08-23] MEDS: Amlodipine 10 MG TAB PO SCH (21:18)
[2023-08-23] MEDS: Atorvastatin Calcium 40 MG TAB PO SCH (21:19)
[2023-08-23] MEDS: Tamsulosin HCl 0.4 MG CAP PO SCH (21:19)
[2023-08-24] MEDS ORDERED: Lidocaine 1% (PF) 30 ML VIAL SC SCH (08:00)
[2023-08-24] MEDS: traMADol HCl 50 MG TAB PO PRN ×2 (09:17→15:59)
[2023-08-24] MEDS: Lisinopril 20 MG TAB PO SCH (09:19)
[2023-08-24] MEDS: Aspirin 81 mg Enteric Coated Tablet PO SCH (09:19)
[2023-08-24] MEDS: cloNIDine 0.1 MG TAB PO SCH ×2 (09:21→20:11)
[2023-08-24] MEDS: Famotidine 20 MG TAB PO SCH ×2 (09:21→20:11)
[2023-08-24] MEDS ORDERED: Morphine 4 MG/ML VIAL ONE (11:43)
[2023-08-24] MEDS: Clopidogrel Bisulfate 75 MG TAB PO SCH (11:58)
[2023-08-24] MEDS ORDERED: Morphine 2 MG/ML VIAL SLOW IVP SCH (12:00)
[2023-08-24] MEDS: Heparin 5,000 UNITS/ML VIAL SC SCH (12:01)
[2023-08-24 15:18] LABS: Fluid, Protein 5.1 g/dL (Not Available)
[2023-08-24 15:19] LABS: RBC Count-Automated (BF) 792 /cu.mm; WBC/Nucleated-Auto (BF) 2770 /cu.mm
[2023-08-24 15:20] LABS: BF Color Yellow; Body Fluid Source Synovial Fluid; Clarity Hazy (Clear); Tube # EDTA
[2023-08-24 15:53] LABS: BF Segmented Neutrophils 67 %; Cell Count Non Hematic 32 %; Lymphocytes 1 %
[2023-08-24] MEDS: Atorvastatin Calcium 40 MG TAB PO SCH (20:10)
[2023-08-24] MEDS: Amlodipine 10 MG TAB PO SCH (20:10)
[2023-08-24] MEDS: Tamsulosin HCl 0.4 MG CAP PO SCH (20:10)
[2023-08-24] MEDS: Morphine 2 MG/ML VIAL SLOW IVP PRN (20:16)
[2023-08-25] MEDS ORDERED: methylPREDNISolone Acetate 40 mg/ml Vial IM SCH (07:45)
[2023-08-25] MEDS ORDERED: Lidocaine 1% (PF) 30 ML VIAL SC SCH (07:45)
[2023-08-25] MEDS ORDERED: fentaNYL 50 mcg/mL 1 mL Vial SLOW IVP SCH (08:00)
[2023-08-25] MEDS ORDERED: ALPRAZolam 0.5 MG TAB PO SCH (08:00)
[2023-08-25] MEDS ORDERED: Fentanyl 100 MCG/2 ML VIAL SLOW IVP SCH (08:00)
[2023-08-25] MEDS: Morphine 2 MG/ML VIAL SLOW IVP PRN (08:22)
[2023-08-25] MEDS: Aspirin 81 mg Enteric Coated Tablet PO SCH (08:22)
[2023-08-25] MEDS: cloNIDine 0.1 MG TAB PO SCH ×2 (08:23→19:44)
[2023-08-25] MEDS: Clopidogrel Bisulfate 75 MG TAB PO SCH (08:23)
[2023-08-25] MEDS: Famotidine 20 MG TAB PO SCH ×2 (08:23→20:07)
[2023-08-25] MEDS: Lisinopril 20 MG TAB PO SCH (08:24)
[2023-08-25] MEDS: HYDROcodone/Acetaminophen 7.5/325 mg Tablet PO PRN ×2 (12:12→20:08)
[2023-08-25] MEDS: Ketorolac Tromethamine 30 MG/ML VIAL IVP SCH ×3 (12:13→23:15)
[2023-08-25] MEDS ORDERED: Bisacodyl 10 MG SUPP PR SCH (12:15)
[2023-08-25] MEDS: Gabapentin 100 MG CAP PO SCH ×2 (13:58→20:07)
[2023-08-25] MEDS: Amlodipine 10 MG TAB PO SCH (19:55)
[2023-08-25] MEDS: Senokot S 8.6-50 MG TAB PO SCH (19:57)
[2023-08-25] MEDS: Atorvastatin Calcium 40 MG TAB PO SCH (20:07)
[2023-08-25] MEDS: Tamsulosin HCl 0.4 MG CAP PO SCH (20:08)
[2023-08-26 04:09] LABS: #Monocytes 0.4 thou/uL (0.11-0.59); #Neutrophils 8.2 thou/uL (1.40-6.50); %Basophils 0.1 % (0.0-1.0); %Neutrophils 87.4 % (42.0-75.0); Mean Corpuscular HGB CONC 32.3 g/dL (32.0-36.0); Mean Corpuscular Hemoglobin 27.2 pg (27.0-31.0); Mean Corpuscular Volume 84.2 fl (78.0-98.0); Mean Platelet Volume 10.1 fL (7.4-10.4); Platelet Count 302 10x3/uL (130-400); RBC Distribution Width 12.1 % (11.5-14.5); Red Blood Cell (RBC) Count 3.68 mill/uL (4.70-6.10); White Blood Cell (WBC) Count 9.3 10x3/uL (4.8-10.8)
[2023-08-26 04:33] LABS: Anion Gap 15 mmol/L (10-20); BUN (Urea Nitrogen) 32 mg/dL (8.4-25.7); Calc. Creatinine Clearance 99 mL/min (70-130); Calcium 9.7 mg/dL (7.8-10.44); Carbon Dioxide 25 mmol/L (22-29); Chloride 98 mmol/L (98-107); Estimated GFR 61; Glucose 144 mg/dL (70-105); Potassium 3.9 mmol/L (3.5-5.1); Sodium 134 mmol/L (136-145)
[2023-08-26] MEDS: Ketorolac Tromethamine 30 MG/ML VIAL IVP SCH ×4 (06:00→23:24)
[2023-08-26] MEDS: HYDROcodone/Acetaminophen 7.5/325 mg Tablet PO PRN ×2 (06:00→10:42)
[2023-08-26] MEDS: cloNIDine 0.1 MG TAB PO SCH ×2 (10:31→22:02)
[2023-08-26] MEDS: Senokot S 8.6-50 MG TAB PO SCH ×2 (10:31→22:00)
[2023-08-26] MEDS: Lisinopril 20 MG TAB PO SCH (10:31)
[2023-08-26] MEDS: Aspirin 81 mg Enteric Coated Tablet PO SCH (10:32)
[2023-08-26] MEDS: Famotidine 20 MG TAB PO SCH ×2 (10:32→22:01)
[2023-08-26] MEDS: Clopidogrel Bisulfate 75 MG TAB PO SCH (10:33)
[2023-08-26] MEDS: Gabapentin 100 MG CAP PO SCH ×3 (10:33→22:03)
[2023-08-26] MEDS ORDERED: Gabapentin 100 MG CAP PO SCH ×2 (10:54→11:00)
[2023-08-26] MEDS ORDERED: HYDROcodone/Acetaminophen 10/325 mg Tablet PO PRN (10:55)
[2023-08-26] MEDS: Methocarbamol 500 MG TAB PO SCH ×3 (14:21→22:01)
[2023-08-26] MEDS: Heparin 5,000 UNITS/ML VIAL SC SCH (21:59)
[2023-08-26] MEDS: Amlodipine 10 MG TAB PO SCH (22:00)
[2023-08-26] MEDS: Tamsulosin HCl 0.4 MG CAP PO SCH (22:01)
[2023-08-26] MEDS: Atorvastatin Calcium 40 MG TAB PO SCH (22:02)
[2023-08-27 05:26] LABS: #Monocytes 0.8 thou/uL (0.11-0.59); #Neutrophils 15.5 thou/uL (1.40-6.50); %Basophils 0.1 % (0.0-1.0); %Lymphocytes 8.8 % (21.0-51.0); %Monocytes 4.4 % (0.0-10.0); %Neutrophils 86.3 % (42.0-75.0); Hematocrit 34.7 % (42.0-52.0); Hemoglobin 11.2 g/dL (14.0-18.0); Mean Corpuscular HGB CONC 32.3 g/dL (32.0-36.0); Mean Corpuscular Hemoglobin 26.9 pg (27.0-31.0); Mean Corpuscular Volume 83.4 fl (78.0-98.0); Mean Platelet Volume 9.9 fL (7.4-10.4); Platelet Count 417 10x3/uL (130-400); RBC Distribution Width 12.4 % (11.5-14.5); Red Blood Cell (RBC) Count 4.16 mill/uL (4.70-6.10)
[2023-08-27] MEDS: Ketorolac Tromethamine 30 MG/ML VIAL IVP SCH (05:34)
[2023-08-27 05:55] LABS: Anion Gap 16 mmol/L (10-20); BUN (Urea Nitrogen) 41 mg/dL (8.4-25.7); Calc. Creatinine Clearance 83 mL/min (70-130); Calcium 10.4 mg/dL (7.8-10.44); Carbon Dioxide 26 mmol/L (22-29); Chloride 99 mmol/L (98-107); Estimated GFR 49; Glucose 121 mg/dL (70-105); Potassium 3.7 mmol/L (3.5-5.1); Sodium 137 mmol/L (136-145)
[2023-08-27] MEDS ORDERED: NIFEdipine XL 30 MG ER.TAB PO SCH (09:23)
[2023-08-27] MEDS ORDERED: Morphine 4 MG/ML VIAL SLOW IVP PRN (09:46)
[2023-08-27] MEDS: Famotidine 20 MG TAB PO SCH ×2 (10:01→22:15)
[2023-08-27] MEDS: Aspirin 81 mg Enteric Coated Tablet PO SCH (10:01)
[2023-08-27] MEDS: cloNIDine 0.1 MG TAB PO SCH ×2 (10:01→22:14)
[2023-08-27] MEDS: Methocarbamol 500 MG TAB PO SCH ×4 (10:01→22:15)
[2023-08-27] MEDS: Senokot S 8.6-50 MG TAB PO SCH ×2 (10:02→22:15)
[2023-08-27] MEDS: Heparin 5,000 UNITS/ML VIAL SC SCH ×2 (10:02→22:15)
[2023-08-27] MEDS: Clopidogrel Bisulfate 75 MG TAB PO SCH (10:02)
[2023-08-27] MEDS: Lactated Ringer's 1,000 ML IV SCH ×2 (10:12→14:13)
[2023-08-27] MEDS: Lisinopril 20 MG TAB PO SCH (12:54)
[2023-08-27] MEDS: Atorvastatin Calcium 40 MG TAB PO SCH (22:15)
[2023-08-27] MEDS: Tamsulosin HCl 0.4 MG CAP PO SCH (22:16)
[2023-08-28 08:23] LABS: #Eosinphils 0.1 thou/uL (0.0-0.7); #Monocytes 0.7 thou/uL (0.11-0.59); #Neutrophils 5.8 thou/uL (1.40-6.50); %Basophils 0.4 % (0.0-1.0); %Eosinophils 1.3 % (0.0-10.0); %Lymphocytes 27.2 % (21.0-51.0); %Monocytes 7.8 % (0.0-10.0); %Neutrophils 62.9 % (42.0-75.0); Hematocrit 33.8 % (42.0-52.0); Hemoglobin 10.7 g/dL (14.0-18.0); Mean Corpuscular HGB CONC 31.7 g/dL (32.0-36.0); Mean Corpuscular Hemoglobin 27.2 pg (27.0-31.0); Mean Corpuscular Volume 85.8 fl (78.0-98.0); Mean Platelet Volume 9.7 fL (7.4-10.4); Platelet Count 369 10x3/uL (130-400); RBC Distribution Width 12.5 % (11.5-14.5); Red Blood Cell (RBC) Count 3.94 mill/uL (4.70-6.10); White Blood Cell (WBC) Count 9.2 10x3/uL (4.8-10.8)
[2023-08-28 08:47] LABS: Anion Gap 16 mmol/L (10-20); BUN (Urea Nitrogen) 33 mg/dL (8.4-25.7); Calc. Creatinine Clearance 119 mL/min (70-130); Calcium 9.1 mg/dL (7.8-10.44); Carbon Dioxide 24 mmol/L (22-29); Chloride 103 mmol/L (98-107); Estimated GFR 75; Glucose 100 mg/dL (70-105); Potassium 3.7 mmol/L (3.5-5.1); Sodium 139 mmol/L (136-145)
[2023-08-28] MEDS ORDERED: NIFEdipine XL 30 MG ER.TAB PO SCH (09:00)
[2023-08-28] MEDS: Famotidine 20 MG TAB PO SCH (10:30)
[2023-08-28] MEDS: Clopidogrel Bisulfate 75 MG TAB PO SCH (10:30)
[2023-08-28] MEDS: cloNIDine 0.1 MG TAB PO SCH (10:30)
[2023-08-28] MEDS: Methocarbamol 500 MG TAB PO SCH (10:30)
[2023-08-28] MEDS: Aspirin 81 mg Enteric Coated Tablet PO SCH (10:31)
[2023-08-28] MEDS: Heparin 5,000 UNITS/ML VIAL SC SCH (10:31)
[2023-08-28] MEDS: Senokot S 8.6-50 MG TAB PO SCH (10:32)
[2023-08-28] MEDS: Lactated Ringer's 1,000 ML IV SCH (12:01)
[2023-08-28 12:07] VITALS: BP 134/80; TEMP 98.2
== END 2023-08-28 14:20 | DRG 566 ==
LOC: ERS 09:26 → 2SE 15:29 → OBSVTOIN 08-23 16:03
PROVIDERS: ADMIT Internal Medicine; ATTEND Hospitalist
PROC: 0S9D3ZZ Drainage of Left Knee Joint, Percutaneous Approach (ICD-10-PCS; principal; 2023-08-25)
PROC: 0S9C3ZZ Drainage of Right Knee Joint, Percutaneous Approach (ICD-10-PCS; 2023-08-25)
DX: M25.461 Effusion, right knee (principal); M25.462 Effusion, left knee; M17.0 Bilateral primary osteoarthritis of knee; E78.5 Hyperlipidemia, unspecified; I12.9 Hypertensive chronic kidney disease with stage 1 through stage 4 chronic kidney disease, or unspecified chronic kidney disease; Z79.899 Other long term (current) drug therapy; Z79.82 Long term (current) use of aspirin; N40.0 Benign prostatic hyperplasia without lower urinary tract symptoms; Z87.891 Personal history of nicotine dependence; Z82.49 Family history of ischemic heart disease and other diseases of the circulatory system; E87.6 Hypokalemia; E83.42 Hypomagnesemia; D63.1 Anemia in chronic kidney disease; I25.10 Atherosclerotic heart disease of native coronary artery without angina pectoris; Z86.73 Personal history of transient ischemic attack (TIA), and cerebral infarction without residual deficits; Z51.5 Encounter for palliative care; K59.00 Constipation, unspecified; N18.30 Chronic kidney disease, stage 3 unspecified
CPT/HCPCS: 36415; 36416; 70450; 70551; 80048; 80053; 80061; 82945; 83036; 83735; 84157; 84484; 84550; 85025; 85060; 85610; 85730; 87070; 87205; 89051; 89060; 93005; 93880; 93970; 96372; 96374; G0378; J1030; J1644; J1885; J2001; J2272; J3010; J3475; J7120

== ENCOUNTER 2025-10-14 09:46 | Outpatient (CLI) | payer MEDICARE | END 2025-10-14 09:47 | disposition home or self-care (01) | LOC: ULT 09:46 | PROVIDERS: ATTEND Internal Medicine Nephrology | DX: N18.30 Chronic kidney disease, stage 3 unspecified (principal) | CPT/HCPCS: 76770; 93975 ==